=== PATIENT | female | born 1950 | race Caucasian/White ===

== ENCOUNTER 2019-09-04 15:11 | Emergency (ER) | payer MEDICARE, MEDICAID ==
[~2019-09-04] VITALS: Ht 147.3 cm; Wt 90.7 kg
[2019-09-04 15:18] VITALS: Ht 147.3 cm; Wt 90.7 kg
[2019-09-04 16:33] LABS: BASOPHIL % 0.1 % (0-2); PLATELET COUNT 203 x10^3mcL (130-400)
[2019-09-04 16:44] LABS: CALCIUM 8.8 mg/dL (8.5-10.1); CARBON DIOXIDE 30.6 mmol/L (21-32); CREATININE SERUM 1.1 mg/dL (0.6-1.0); POTASSIUM SERUM 4.5 mmol/L (3.5-5.1)
[2019-09-04 16:49] LABS: ALBUMIN 3.9 g/dL (3.4-5.0); BILIRUBIN TOTAL 0.57 mg/dL (0.20-1.00)
[2019-09-04 16:53] LABS: TOTAL PROTEIN, SERUM 8.9 g/dL (6.4-8.2)
[2019-09-04 18:14] VITALS: BP 151/74
== END 2019-09-04 20:10 | disposition short-term general hospital (02) ==
LOC: ED 15:11
PROVIDERS: Emergency Medicine
DX: R09.02 Hypoxemia (principal); R06.00 Dyspnea, unspecified; I11.0 Hypertensive heart disease with heart failure; I50.9 Heart failure, unspecified; E11.9 Type 2 diabetes mellitus without complications; Z98.890 Other specified postprocedural states; Z88.6 Allergy status to analgesic agent
CPT/HCPCS: 36415; 36600; 83880; J7613; Q0092